=== PATIENT | female | born 1970 | race Caucasian/White ===

== ENCOUNTER 2023-10-25 17:07 | Emergency (ER) | payer OTHER ==
[~2023-10-25] VITALS: Ht 162.6 cm; Wt 65.8 kg
[2023-10-25] MEDS: SUMATRIPTAN SUCCINATE 6 MG/0.5 ML VIAL SQ ONE (17:38)
[2023-10-25] MEDS ORDERED: METOCLOPRAMIDE HCL 10 MG/2 ML VIAL ONE (17:39)
[2023-10-25] MEDS ORDERED: SUMATRIPTAN SUCCINATE 6 MG/0.5 ML VIAL SQ ONE (17:39)
[2023-10-25] MEDS: IV NS 0.9% 1,000 ML BAG IV ONE (17:40)
[2023-10-25] MEDS: METOCLOPRAMIDE HCL 10 MG/2 ML VIAL IV ONE (17:45)
[2023-10-25] MEDS ORDERED: METO-543 PO (19:06)
[2023-10-25] MEDS ORDERED: AMLO-212 PO (19:06)
[2023-10-25] MEDS ORDERED: FLUT16SP16 BNOSTRILS (19:06)
[2023-10-25] MEDS ORDERED: SUMA50TA PO (19:06)
[2023-10-25 19:34] VITALS: BP 194/78; TEMP 98.2; O2SAT 100
== END 2023-10-25 19:30 | disposition home or self-care (01) ==
LOC: ER 17:27
DX: R51.9 Headache, unspecified (principal); J32.9 Chronic sinusitis, unspecified
CPT/HCPCS: 99285; 96374; 70450; 96361; 96372; J3030; J2765; J7030 ×2